=== PATIENT | male | born 1975 | race Caucasian/White ===

== ENCOUNTER 2017-07-18 22:00 | Emergency (ER) | payer OTHER ==
[~2017-07-18] VITALS: Ht 182.9 cm; Wt 105.5 kg
[2017-07-18 23:53] LABS: APPEARANCE SL.HAZY ((CLEAR)); BILIRUBIN NEGATIVE; BLOOD NEGATIVE; COLOR YELLOW ((YELLOW)); GLUCOSE (STRIP) NEGATIVE; KETONES NEGATIVE; LEUKOCYTES NEGATIVE; NITRITE NEGATIVE; PROTEIN (STRIP) NEGATIVE; SPECIFIC GRAVITY 1.027 (1.000-1.030); UROBILINOGEN 0.2 MG/DL (0.2-1.0)
[2017-07-18 23:56] LABS: BACTERIA NONE SEEN /HPF; EPITHELIAL CELLS NONE SEEN /HPF; MUCUS TRACE /LPF; RED BLOOD CELLS 0-5 /HPF (0-5); UCUL ADDED? NO; WHITE BLOOD CELLS 0-5 /HPF (0-5)
[2017-07-19] MEDS ORDERED: NAPROSYN500 MG PO (00:12)
[2017-07-19] MEDS ORDERED: FLEXERIL10 MG PO (00:12)
[2017-07-19 00:38] VITALS: BP 138/68
== END 2017-07-19 00:39 | disposition home or self-care (01) ==
LOC: EME 22:00
PROVIDERS: Physician Assistant
DX: S20.212A Contusion of left front wall of thorax, initial encounter (principal); S20.222A Contusion of left back wall of thorax, initial encounter; S70.02XA Contusion of left hip, initial encounter; V43.52XA Car driver injured in collision with other type car in traffic accident, initial encounter; Y92.410 Unspecified street and highway as the place of occurrence of the external cause
CPT/HCPCS: 71101; 73502; 81003; 99281; 99283